=== PATIENT | male | born 1980 | race Caucasian/White ===

== ENCOUNTER 2019-07-26 08:40 | Emergency (ER) | payer OTHER ==
[2019-07-26 08:51] VITALS: BP 129/87; PULSE 110; TEMP 98.6; BMI 40.3
--- NOTE | 2019-07-26 08:57 | PDOC ---
History of Present Illness - General Chief Complaint: Seizure Stated Complaint: Seizure Time Seen by Provider: 07/26/19 08:53 History Source: Patient - History of Present Illness Initial Comments: 07/26/19 09:28 Mr. Paez is a 38 y/o man with hx epilepsy presenting s/p seizure today at a diner. He reports sitting down to eat and waking up in the back of the ambulance. Per EMS, bystanders reported that he was unconscious for 3-4 minutes. He reports that while he took is regular 1000 mg Depakote last night, he had not for the two nights prior as he had fallen asleep before taking it. His last seizure was 2 years ago. He denies any alcohol or drug use today. He reports mild R sided neck soreness, as well as mild headache. He reports that he often has a headache after his seizures. He denies any nausea, vomiting, palpitations, fevers, chills, diarrhea, constipation, fatigue. Neurologist: Dr. Douglas Bingham Past History - Past Medical History Allergies/Adverse Reactions: Allergies Allergy/AdvReac Type Severity Reaction Status Date / Time No Known Allergies Allergy Verified 07/26/19 08:47 Home Medications: Ambulatory Orders Divalproex [Depakote -] 1,000 mg PO HS 05/29/14 COPD: No Seizures: Yes - Suicide/Smoking/Psychosocial Hx Smoking History: Never smoked Have you smoked in the past 12 months: No Information on smoking cessation initiated: No Hx Alcohol Use: No Drug/Substance Use Hx: No Substance Use Type: None Review of Systems - Review of Systems Able to Perform ROS?: Yes Comments:: 07/26/19 14:56 ROS: GENERAL/CONSTITUTIONAL: No fever or chills. No weakness. HEAD, EYES, EARS, NOSE AND THROAT: No change in vision. No ear pain or discharge. No sore throat. CARDIOVASCULAR: No chest pain or shortness of breath RESPIRATORY: No cough, wheezing, or hemoptysis. GASTROINTESTINAL: No nausea, vomiting, diarrhea or constipation. GENITOURINARY: No dysuria, frequency, or change in urination. MUSCULOSKELETAL: No joint or muscle swelling or pain. No neck or back pain. SKIN: No rash NEUROLOGIC: Seizure, Mild headache. No vertigo, or change in strength/sensation. ENDOCRINE: No increased thirst. No abnormal weight change HEMATOLOGIC/LYMPHATIC: No anemia, easy bleeding, or history of blood clots. ALLERGIC/IMMUNOLOGIC: No hives or skin allergy. *Physical Exam - Vital Signs Last Vital Signs Temp Pulse Resp BP Pulse Ox 98.6 F 110 H 20 129/87 96 07/26/19 08:47 07/26/19 08:47 07/26/19 08:47 07/26/19 08:47 07/26/19 08:47 - Physical Exam Comments: 07/26/19 14:58 PE: GENERAL: Awake, alert, and fully oriented, in no acute distress HEAD: No signs of trauma, normocephalic, atraumatic EYES: PERRLA, EOMI, sclera anicteric, conjunctiva clear ENT: Auricles normal inspection, hearing grossly normal, nares patent, oropharynx clear without exudates. Moist mucosa NECK: Normal ROM, supple, no lymphadenopathy, JVD, or masses LUNGS: No distress, speaks full sentences, clear to auscultation bilaterally HEART: Regular rate and rhythm, normal S1 and S2, no murmurs, rubs or gallops, peripheral pulses normal and equal bilaterally. ABDOMEN: Soft, nontender, normoactive bowel sounds. No guarding, no rebound. No masses EXTREMITIES : Normal inspection, Normal range of motion, no edema. No clubbing or cyanosis NEUROLOGICAL: Cranial nerves II through XII grossly intact. Normal speech, normal gait, no focal sensorimotor deficits SKIN: Warm, Dry, normal turgor, no rashes or lesions noted ED Treatment Course - LABORATORY CBC & Chemistry Diagram: 07/26/19 09:11 07/26/19 09:11 Medical Decision Making - Medical Decision Making 07/26/19 09:25 38 y/o M with hx epilepsy (last seizure 2016) p/w seizure after missed doses of depakote. Plan: CBC CMP Depakote level Depakote [address] head w/o contrast 1L NS IV bolus Dispo: Likely discharge 07/26/19 10:04 Valproic acid in therapeutic range CBC, CMP wnl CT read pending If normal, plan for discharge home with neurology follow up (Dr. Douglas Bingham) 07/26/19 11:11 CT head negative for acute process. Plan for discharge/follow up with neurologist. *DC/Admit/Observation/Transfer Diagnosis at time of Disposition: Seizure - Discharge Dispostion Disposition: HOME Condition at time of disposition: Stable Decision to Admit order: No - Referrals Referrals: Jordy Oquendo MD [Staff Physician] - ON STAFF,NOT [Primary Care Provider] - - Patient Instructions Printed Discharge Instructions: DI for Seizure Disorder -- Adult Additional Instructions: Please return to the emergency department with any new or worsening symptoms or concerns. Please follow up with your neurologist and primary care physician within 72 hours. Continue to take Depakote 1000 mg as instructed daily. - Post Discharge Activity Forms/Work/School Notes: Back to Work, Back to School
[2019-07-26] MEDS ORDERED: DIVALPROEX SODIUM 500 MG TABLET E.C. PO ONE (09:13)
[2019-07-26] MEDS ORDERED: SODIUM CHLORIDE 0.9% 500 ML INFUS.BAG IV ONE (09:15)
[2019-07-26] MEDS ORDERED: DIVALPROEX SODIUM 500 MG TABLET E.C. ONE (09:22)
[2019-07-26 09:30] LABS: BASO % 0.5 % (0-2.0); EOS % 0.9 % (0-4.5); HEMATOCRIT 41.9 % (35.4-49); HEMOGLOBIN 14.4 GM/dL (11.7-16.9); LYMPH % 25.2 % (8-40); MCH 28.1 pg (25.7-33.7); MCHC 34.4 g/dl (32.0-35.9); MEAN CELL VOLUME 81.8 fl (80-96); MEAN PLT VOLUME 8.6 fl (7.5-11.1); MONO % 6.2 % (3.8-10.2); NEUT % 67.2 % (42.8-82.8); PLATELET COUNT 225 K/MM3 (134-434); RBC 5.12 M/mm3 (4.00-5.60); RDW 14.1 % (11.9-15.9); WHITE BLOOD COUNT 8.4 K/mm3 (4.0-10.0)
[2019-07-26 09:54] LABS: ALBUMIN 4.1 g/dl (3.4-5.0); BILIRUBIN,TOTAL 0.2 mg/dL (0.2-1); BLOOD UREA NITROGEN 13.7 mg/dL (7-18); CALCIUM 9.3 mg/dL (8.5-10.1); POTASSIUM 4.9 mmol/L (3.5-5.1)
--- NOTE | 2019-07-26 11:30 | PDOC ---
Documentation entered by Ondina Richard SCRIBE, acting as scribe for Verena Fox MD. Verena Fox MD: This documentation has been prepared by the Hilary valencia Adrianna, SCRIBE, under my direction and personally reviewed by me in its entirety. I confirm that the documentation accurately reflects all work, treatment, procedures, and medical decision making performed by me. Attending Attestation - Resident Resident Name: Manoj Qureshi - ED Attending Attestation I have performed the following: I have examined & evaluated the patient, The case was reviewed & discussed with the resident, I agree w/resident's findings & plan, Exceptions are as noted - HPI HPI: 07/26/19 11:21 Mr Paez is a 38 yo M who presents to the ER via EMS s/p seizure Pt has a history of seizure disorder - generalized tonic clonic seizures Last seizure was 3 years ago Pt did not take his medications for 2 days He is typically well controlled, has breakthrough seizures when he misses his meds OR doesn't sleep well He currently is at his baseline No headache No weakness No fevers He follows up with Dr East at [facility] - Physicial Exam PE: 07/26/19 11:25 GENERAL: The patient is in no acute distress. ENT: Ears normal, nares patent, oropharynx clear without exudates. Moist mucous membranes. NECK: Normal range of motion, supple LUNGS: Breath sounds equal, clear to auscultation bilaterally. No wheezes, and no crackles. HEART:Regular rate and rhythm, normal S1 and S2 without murmur, rub or gallop. ABDOMEN: Soft, nontender EXTREMITIES: Normal range of motion, no edema. NEUROLOGICAL: Cranial nerves II through XII grossly intact. Normal speech. No focal neurological deficits. SKIN: Petechiae noted on the face - Medical Decision Making 07/26/19 11:27 Pt has a h/o seizure d/o Now with a breakthrough seizure in the setting of medication non compliance Will do basic labs Pt is now taking his medications 07/26/19 11:27 Laboratory Tests 07/26/19 07/26/19 07/26/19 09:11 09:11 09:11 WBC 8.4 Hgb 14.4 Hct 41.9 Plt Count 225 D Sodium 136 BUN 13.7 Creatinine 1.0 Valproic Acid 70.6 07/26/19 11:28 CT not indicated (no head trauma) Will plan to discharge to home 07/26/19 11:30 Clinical impression: breakthrough seizure, initial presentation *DC/Admit/Observation/Transfer Diagnosis at time of Disposition: Seizure - Discharge Dispostion Disposition: HOME Condition at time of disposition: Stable - Referrals Referrals: Jordy Oquendo MD [Staff Physician] - ON STAFF,NOT [Primary Care Provider] - - Patient Instructions Printed Discharge Instructions: DI for Seizure Disorder -- Adult Additional Instructions: Please return to the emergency department with any new or worsening symptoms or concerns. Please follow up with your neurologist and primary care physician within 72 hours. Continue to take Depakote 500 mg as instructed daily. - Post Discharge Activity Forms/Work/School Notes: Back to Work, Back to School
== END 2019-07-26 11:41 | disposition home or self-care (01) ==
LOC: JER 08:40
PROC: 3E0337Z Introduction of Electrolytic and Water Balance Substance into Peripheral Vein, Percutaneous Approach (ICD-10-PCS; principal; 2019-07-26)
DX: G40.909 Epilepsy, unspecified, not intractable, without status epilepticus (principal)
CPT/HCPCS: 36415; 70450-TC; 80053; 80164; 85025; 99282-25